=== PATIENT | female | born 1960 | race Caucasian/White ===

== ENCOUNTER 2016-10-20 14:48 | Emergency (ER) | payer OTHER ==
[~2016-10-20] VITALS: Ht 149.9 cm; Wt 84.0 kg
[~2016-10-20 14:48] MED LIST: GLYB5TAB; INSU100V19
[2016-10-20 15:08] VITALS: Ht 149.9 cm; Wt 84.0 kg
[2016-10-20] MEDS ORDERED: LIDOCAINE 1% (MDV) 20 ML INJ SC ONE (16:30)
[2016-10-20] MEDS ORDERED: HYDROCODONE/APAP (5/325) TAB PO ONE ×2 (16:30→17:00)
[2016-10-20] MEDS ORDERED: IBUP-1542 PO ×2 (18:56→19:00)
[2016-10-20] MEDS ORDERED: HYDR-906 PO (18:58)
[2016-10-20] MEDS ORDERED: CEPH-443 PO (18:58)
[2016-10-20] MEDS ORDERED: SULF1TAB31 PO (18:58)
--- NOTE | 2016-10-20 21:41 | ERD ---
ER Documentation Chief Complaint Date/Time DATE: 10/20/16 TIME: 21:36 Chief Complaint ABCESS ON SACRUM X 2 DAYS HPI Patient is a 55-year-old female who presents to the emergency department for concerns of an abscess in her buttocks region. Patient states the pain started 2 days ago. Patient reports redness and swelling to the affected area. Patient reports difficulty with sitting secondary to pain. She denies taking any pain medication. Patient denies any fevers, chills, nausea, vomiting, recent falls or trauma. She denies any history of pilonidal abscesses in the past. ROS All systems reviewed and are negative except as per history of present illness. Medications Home Meds Active Scripts Ibuprofen* (Motrin*) 600 Mg Tab, 600 MG PO Q6, #30 TAB Prov:MAMADOU PITTS PA-C 10/20/16 Hydrocodone/Acetaminophen ([place] 5-325 Tablet) 1 Each Tablet, 1 TAB PO Q6H Y for PAIN, #7 TAB Prov:MAMADOU PITTS PA-C 10/20/16 Cephalexin* (Keflex*) 500 Mg Capsule, 500 MG PO QID for 10 Days, CAP Prov:MAMADOU PITTS PA-C 10/20/16 Sulfamethoxazole/Trimethoprim* (Bactrim Ds* Tablet) 1 Each Tablet, 1 TAB PO BID , #20 TAB Prov:MAMADOU PITTS PA-C 10/20/16 Reported Medications Insulin Glargine,Hum.rec.anlog (Lantus) 100 U/Ml Vial 08/09/10 Glyburide* (Diabeta*) 5 Mg Tablet 08/09/10 Discontinued Scripts Ibuprofen* (Motrin*) 600 Mg Tab, 600 MG PO Q6, #30 TAB Prov:MAMADOU PITTSC 10/20/16 Allergies Allergies: Coded Allergies: No Known Allergies (Verified Allergy, Mild, 08/09/10) PMhx/Soc History of Surgery: Yes (ARIEL CLEMENTE) Anesthesia Reaction: No Hx Neurological Disorder: Yes Hx Respiratory Disorders: No Hx Cardiac Disorders: No Hx Psychiatric Problems: No Hx Miscellaneous Medical Probl: No Hx Alcohol Use: No Hx Substance Use: No Hx Tobacco Use: No Smoking Status: Never smoker FmHx Family History: No diabetes Physical Exam Vitals Vital Signs Date Time Temp Pulse Resp B/P Pulse Ox O2 Delivery O2 Flow Rate FiO2 10/20/16 15:08 98.2 90 18 141/80 98 Physical Exam GENERAL: Well-developed, well-nourished female. Appears in no acute distress. HEAD: Normocephalic, atraumatic. EYES: Pupils are equally reactive bilaterally. EOMs grossly intact. No conjunctival erythema. ENT: Moist mucous membranes. No uvula deviation. No kissing tonsils. NECK: Supple. No meningismus. Normal range of motion of the neck. LUNG: Clear to auscultation bilaterally. No rhonchi, wheezing, rales or coarse breath sounds. HEART: Regular rate and rhythm. No murmurs, rubs or gallops. ABDOMEN: No scars, ecchymosis or rashes noted. Soft, nontender, and nondistended. Positive bowel sounds in all four quadrants. No rebound tenderness , no guarding. (-) McBurney's point tenderness. No CVA tenderness. BACK: No midline tenderness. EXTREMITIES: Equal pulses bilaterally. No peripheral clubbing, cyanosis or edema. No unilateral leg swelling. NEUROLOGIC: Alert and oriented. Moving all four extremities without any difficulty. Normal speech. Steady gait. SKIN: Normal color. Warm and dry. No rashes or lesions. 5 cm circular abscess noted above the patient's gluteal cleft. Area appears erythematous swollen and extremely tender to touch. Pustular head noted. Slight fluctuance noted. No lymphatic streaking. Results 24 hrs Current Medications Medications (Trade) Dose Ordered Sig/Criss Route PRN Reason Start Time Stop Time Status Last Admin Dose Admin Acetaminophen/ Hydrocodone Bitart ([place] (5/325)) 1 tab ONCE ONCE PO 10/20/16 16:30 10/20/16 16:31 DC 10/20/16 16:25 Lidocaine (Xylocaine 1% (Mdv) 20 ml) 20 ml ONCE ONCE SC 10/20/16 16:30 10/20/16 16:31 DC Acetaminophen/ Hydrocodone Bitart ([place] (5/325)) 1 tab ONCE ONCE PO 10/20/16 17:00 10/20/16 17:00 DC Procedures/MDM ED COURSE: The patient was stable throughout ED course. I kept the patient and/or family informed of laboratory and diagnostic imaging results throughout the ED course. PROCEDURES: INCISION AND DRAINAGE: The patient was verbally consented prior to procedure. Patient was explained the risks, benefits and alternatives to this procedure. Location: Gluteal cleft Abscess size: 5 cm Anesthesia: local 1% lidocaine, 5 cc Preparation: The area was prepped in a sterile fashion using betadine x3 cleanses. A sterile field was prepared. Technique: A sterile 11 blade scalpel was used to make a 1 cm linear incision into the abscess. Procedure: A midline abscess incision was made using a sterile scalpel in a linear fashion. Purulent material was expressed with direct pressure. Blunt probing was used to break up loculations. Bleeding was minimal. Packing: half iodoform packing was placed into the wound. The patient tolerated the procedure well with no complications. The wound was dressed in sterile gauze. The patient was neurovascularly intact post- procedure. Post-procedural wound care was discussed with the patient. MEDICATIONS GIVEN: [place] Patient tolerated medication well with no adverse reactions. Patient reported improvement in pain. MEDICAL DECISION MAKING: This is a 55-year-old female who presents with concerns of an abscess to her buttocks 2 days. Vital signs were reviewed. Patient was afebrile. Patient was not hypoxic. An incision and drainage was conducted. Purulent discharge was expressed from the abscess site. Patient tolerated procedure well without any complications. Abscess was packed using half an inch iodoform dressing. At this time, the patient's presentation is most consistent with pilonidal abscess. Low suspicion for deep space infection, perirectal abscess, anal fissure, sciatica, sacral fracture, granuloma. PRESCRIPTIONS: Bactrim, Keflex, ibuprofen, [place] DISCHARGE: At this time, the patient is stable for discharge and outpatient management. Post-procedural wound care was discussed with the patient. Patient advised to complete full course of antibiotics. Warm compresses discussed. The patient has been advised to return to the ER in 2 days for a wound check and removal of packing. I have instructed the patient to promptly return to the ER for any new or worsening symptoms including increasing pain, fever, warmth, redness or swelling. The patient and/or family expressed understanding of and agreement with this plan. All questions were answered. Home care instructions were provided. Departure Diagnosis: Primary Impression: Pilonidal abscess Condition: Stable Patient Instructions: Pilonidal Cyst, Infected (Incision And Drainage) Additional Instructions: Wound recheck advised in 2 days. Return sooner for any new or worsening symptoms including fevers, chills, increasing redness, swelling and pain. Call your primary care doctor TOMORROW for an appointment during the next 1-2 days.See the doctor sooner or return here if your condition worsens before your appointment time. MAMADOU PITTS PA-C October 20, 2016 21:41
== END 2016-10-20 19:10 | disposition home or self-care (01) ==
LOC: FTE 14:48
DX: L05.02 Pilonidal sinus with abscess (principal); E11.9 Type 2 diabetes mellitus without complications; Z79.4 Long term (current) use of insulin; Z79.84 Long term (current) use of oral hypoglycemic drugs
CPT/HCPCS: 10080; Z7502; Z7610

== ENCOUNTER 2016-10-22 22:10 | Emergency (ER) | payer OTHER ==
[~2016-10-22] VITALS: Ht 152.4 cm; Wt 64.5 kg
[~2016-10-22 22:10] MED LIST changes: +CEPH-443 PO; +HYDR-906 PO; +IBUP-1542 PO; +SULF1TAB31 PO
[2016-10-22 22:50] VITALS: Ht 152.4 cm; Wt 64.5 kg
--- NOTE | 2016-10-22 23:38 | ERD ---
ER Documentation Chief Complaint Date/Time DATE: 10/22/16 TIME: 23:37 Chief Complaint LOWER BACK WOUND PATIENT HERE TO HAVE IT RECHECKED. HPI 55-year-old female is here for 2 day wound check for a pilonidal cyst. She is taking the pain medication and antibiotics as prescribed she states her symptoms are much improved. She denies any fever. Denies any bleeding or drainage still. She has no new complaints. ROS All systems reviewed and are negative except as per history of present illness. Medications Home Meds Active Scripts Ibuprofen* (Motrin*) 600 Mg Tab, 600 MG PO Q6, #30 TAB Prov:MAMADOU PITTS PA-C 10/20/16 Hydrocodone/Acetaminophen ([place] 5-325 Tablet) 1 Each Tablet, 1 TAB PO Q6H Y for PAIN, #7 TAB Prov:MAMADOU PITTS PA-C 10/20/16 Cephalexin* (Keflex*) 500 Mg Capsule, 500 MG PO QID for 10 Days, CAP Prov:MAMADOU PITTS PA-C 10/20/16 Sulfamethoxazole/Trimethoprim* (Bactrim Ds* Tablet) 1 Each Tablet, 1 TAB PO BID , #20 TAB Prov:MAMADOU PITTSC 10/20/16 Reported Medications Insulin Glargine,Hum.rec.anlog (Lantus) 100 U/Ml Vial 08/09/10 Glyburide* (Diabeta*) 5 Mg Tablet 08/09/10 Discontinued Scripts Ibuprofen* (Motrin*) 600 Mg Tab, 600 MG PO Q6, #30 TAB Prov:MAMADOU PITTS PA-C 10/20/16 Allergies Allergies: Coded Allergies: No Known Allergies (Verified Allergy, Mild, 08/09/10) PMhx/Soc History of Surgery: Yes (KIDNEY STONES) Anesthesia Reaction: No Hx Neurological Disorder: Yes Hx Respiratory Disorders: No Hx Cardiac Disorders: No Hx Psychiatric Problems: No Hx Miscellaneous Medical Probl: No Hx Alcohol Use: No Hx Substance Use: No Hx Tobacco Use: No FmHx Family History: diabetes Physical Exam Vitals Vital Signs Date Time Temp Pulse Resp B/P Pulse Ox O2 Delivery O2 Flow Rate FiO2 10/22/16 22:50 97.9 76 16 131/64 96 Physical Exam Const: [] Head: Atraumatic Eyes: Normal Conjunctiva ENT: Normal External Ears, Nose and Mouth. Neck: Full range of motion..~ No meningismus. Resp: Clear to auscultation bilaterally Cardio: Regular rate and rhythm, no murmurs Abd: Soft, non tender, non distended. Normal bowel sounds Skin: Healing pilonidal cyst with packing in place Procedures/MDM Pilonidal cyst is healing appropriately without evidence of complication. I removed the packing and recommended she continue to take antibiotics and pain medication as prescribed. Recommended this patient follow up with her primary care doctor within 48 hours or return to the emergency room for any worsening of symptoms. However this time I do believe there is suitable for outpatient management. I answered all their questions and they agreed with the plan and were discharged home. Departure Diagnosis: Primary Impression: Encounter for wound re-check Condition: Stable Patient Instructions: Wound Care Additional Instructions: Llame al doctor JEFFERY y estefanía shawn GIL PARA DENTRO DE 1-2 BISHOP.Dgale a la secretaria que nosotros le instruimos hacer esta gil.Avise o llame si clements condicin se empeora antes de la gil. Regresa aqui si peor o no mejor. CHAVEZ GIBBONS PA-C Oct 22, 2016 23:38
== END 2016-10-22 23:49 | disposition home or self-care (01) ==
LOC: FTE 22:10
DX: Z48.01 Encounter for change or removal of surgical wound dressing (principal); E11.9 Type 2 diabetes mellitus without complications; Z79.4 Long term (current) use of insulin; Z79.84 Long term (current) use of oral hypoglycemic drugs
CPT/HCPCS: 99281

== ENCOUNTER 2017-01-21 10:57 | Emergency (ER) | payer OTHER ==
[~2017-01-21] VITALS: Ht 157.5 cm; Wt 64.5 kg
[2017-01-21 11:00] VITALS: Ht 157.5 cm; Wt 64.5 kg
[2017-01-21] MEDS ORDERED: SULF1TAB31 PO (11:30)
--- NOTE | 2017-01-21 11:42 | ERD ---
ER Documentation Chief Complaint Date/Time DATE: 01/21/17 TIME: 11:40 Chief Complaint Complains of an abscess to the buttock HPI 56-year-old female presents with an abscess to her left buttock that started approximately 5 days ago. She describes localized pain, pain is worse with sitting, or ambulation, described as sharp and is nonradiating. She has no radiation into the rectum, she denies any fevers or chills. ROS All systems reviewed and are negative except as per history of present illness. Medications Home Meds Active Scripts Sulfamethoxazole/Trimethoprim* (Bactrim Ds* Tablet) 1 Each Tablet, 1 TAB PO BID , #14 TAB Prov:SARIKA CHAVARRIA PA-C 01/21/17 Ibuprofen* (Motrin*) 600 Mg Tab, 600 MG PO Q6, #30 TAB Prov:MAMADOU PITTS PA-C 10/20/16 Hydrocodone/Acetaminophen ([place] 5-325 Tablet) 1 Each Tablet, 1 TAB PO Q6H Y for PAIN, #7 TAB Prov:MAMADOU PITTS PA-C 10/20/16 Cephalexin* (Keflex*) 500 Mg Capsule, 500 MG PO QID for 10 Days, CAP Prov:MAMADOU PITTSC 10/20/16 Sulfamethoxazole/Trimethoprim* (Bactrim Ds* Tablet) 1 Each Tablet, 1 TAB PO BID , #20 TAB Prov:MAMADOU PITTS PA-C 10/20/16 Reported Medications Insulin Glargine,Hum.rec.anlog (Lantus) 100 U/Ml Vial 08/09/10 Glyburide* (Diabeta*) 5 Mg Tablet 08/09/10 Allergies Allergies: Coded Allergies: No Known Allergies (Verified Allergy, Mild, 08/09/10) PMhx/Soc History of Surgery: Yes (KIDNEY STONES) Anesthesia Reaction: No Hx Neurological Disorder: Yes Hx Respiratory Disorders: No Hx Cardiac Disorders: No Hx Psychiatric Problems: No Hx Miscellaneous Medical Probl: No Hx Alcohol Use: No Hx Substance Use: No Hx Tobacco Use: No Physical Exam Vitals Vital Signs Date Time Temp Pulse Resp B/P Pulse Ox O2 Delivery O2 Flow Rate FiO2 01/21/17 11:00 99.2 83 20 127/58 98 Physical Exam General: Well-developed, well-nourished. The patient appears in no acute distress. HEENT: Head is normocephalic, atraumatic. No scleral icterus. . Neck: Supple. Nontender. Lungs: Clear to auscultation. Normal air movement. Heart: Regular rate and rhythm. S1 and S2 are normal. No murmurs, gallops, or rubs. Abdomen: Soft, nontender, nondistended. Extremities: No clubbing or cyanosis. Normal pulses. Moving extremities x 4. No weakness. Neurologic: Alert and oriented 3. No focal deficits. Skin: Left buttock/upper thigh presents with 2 cm area of erythema, the central aspect has an induration, streaking, no involvement of the rectum Procedures/MDM 56-year-old female presents with an abscess to her left buttock/thigh she has had for approximately 5 days. The area is indurated, does not warrant any incision and drainage at this time. Advised to do warm sitz baths, she will be given Bactrim, and advised to recheck the area in 2 days. She has any worsening symptoms including fever she may return sooner. She does not have any signs of deep space infection, cellulitis, perianal, perirectal abscess or fistula. Departure Diagnosis: Primary Impression: Abscess Condition: Good Patient Instructions: Abscess, Antiobiotic Treatment Only SARIKA CHAVARRIA PA-C Jan 21, 2017 11:42
== END 2017-01-21 11:35 | disposition home or self-care (01) ==
LOC: FTE 10:57
DX: L02.31 Cutaneous abscess of buttock (principal); E11.9 Type 2 diabetes mellitus without complications; Z79.4 Long term (current) use of insulin; Z79.84 Long term (current) use of oral hypoglycemic drugs
CPT/HCPCS: 99283

== ENCOUNTER 2017-01-24 10:49 | Emergency (ER) | payer OTHER ==
[~2017-01-24] VITALS: Ht 149.9 cm; Wt 64.5 kg
[2017-01-24 10:53] VITALS: Ht 149.9 cm; Wt 64.5 kg
[2017-01-24] MEDS ORDERED: CLIN-73 PO (11:39)
[2017-01-24] MEDS ORDERED: BEN25 PO (11:39)
[2017-01-24] MEDS ORDERED: HC30CR25 TOP (11:39)
--- NOTE | 2017-01-24 16:00 | ERD ---
ER Documentation Chief Complaint Date/Time DATE: 01/24/17 TIME: 15:55 Chief Complaint hives on legs and hands x 3 days. unsure if allergic reaction HPI .This is a 56-year-old female presenting to the emergency department with rash to bilateral lower extremities. Patient states she was seen 3 days ago for a possible abscess on her upper left thigh. Patient was seen here and was told to soak area in warm water and that incision and drainage would not be necessary. Patient was started on Bactrim at that time. Patient states pruritic rash began soon after beginning Bactrim. Patient has taken Bactrim before without complication. Patient has generalized rash over entire body and complains of itching. No fevers or chills. No discharge. Patient states left upper abscess has improved and pain has improved. ROS All systems reviewed and are negative except as per history of present illness. Medications Home Meds Active Scripts Hydrocortisone* Topical (Hydrocortisone* Topical) 2.5%-28.3 Gm Cream..g., 1 APPLIC TOP BID, #1 TUB Prov:WILLIAM BUSTOS NP 01/24/17 Diphenhydramine Hcl* (Benadryl*) 25 Mg Cap, 25 MG PO Q6, #15 CAP Prov:WILLIAM BUSTOS NP 01/24/17 Clindamycin Hcl* (Clindamycin Hcl*) 300 Mg Capsule, 300 MG PO QID for 7 Days, CAP Prov:WILLIAM BUSTOS NP 01/24/17 Sulfamethoxazole/Trimethoprim* (Bactrim Ds* Tablet) 1 Each Tablet, 1 TAB PO BID , #14 TAB Prov:SARIKA CHAVARRIA PA-C 01/21/17 Ibuprofen* (Motrin*) 600 Mg Tab, 600 MG PO Q6, #30 TAB Prov:MAMADOU PITTS PA-C 10/20/16 Hydrocodone/Acetaminophen ([place] 5-325 Tablet) 1 Each Tablet, 1 TAB PO Q6H Y for PAIN, #7 TAB Prov:MAMADOU PITTS PA-C 10/20/16 Cephalexin* (Keflex*) 500 Mg Capsule, 500 MG PO QID for 10 Days, CAP Prov:MAMADOU PITTS PA-C 10/20/16 Sulfamethoxazole/Trimethoprim* (Bactrim Ds* Tablet) 1 Each Tablet, 1 TAB PO BID , #20 TAB Prov:MAMADOU PITTS PA-C 10/20/16 Reported Medications Insulin Glargine,Hum.rec.anlog (Lantus) 100 U/Ml Vial 08/09/10 Glyburide* (Diabeta*) 5 Mg Tablet 08/09/10 Allergies Allergies: Coded Allergies: No Known Allergies (Verified Allergy, Mild, 08/09/10) PMhx/Soc History of Surgery: Yes (KIDNEY STONES) Anesthesia Reaction: No Hx Neurological Disorder: Yes Hx Respiratory Disorders: No Hx Cardiac Disorders: No Hx Psychiatric Problems: No Hx Miscellaneous Medical Probl: No Hx Alcohol Use: No Hx Substance Use: No Hx Tobacco Use: No Smoking Status: Never smoker Physical Exam Vitals Vital Signs Date Time Temp Pulse Resp B/P Pulse Ox O2 Delivery O2 Flow Rate FiO2 01/24/17 10:53 98.8 79 16 144/66 97 Physical Exam Const: No acute distress, alert Head: Atraumatic Eyes: Normal Conjunctiva ENT: Normal External Ears, Nose and Mouth. Neck: Full range of motion..~ No meningismus. Resp: Clear to auscultation bilaterally Cardio: Regular rate and rhythm, no murmurs Abd: Soft, non tender, non distended. Normal bowel sounds Skin: Generalized erythematous rash with scattered wheals and macules. no discharge. indurated lesion to left upper posterior thigh. no discharge. no fluctuance. Back: No midline or flank tenderness Ext: No cyanosis, or edema Neur: Awake and alert Psych: Normal Mood and Affect Procedures/MDM MDM: This is a 56-year-old female presenting to emergency department with generalized pruritic rash after beginning Bactrim for possible abscess to left upper thigh. Patient states abscess to left upper thigh has decreased in size and pain has improved however now patient has generalized pruritic rash. Patient has taken Bactrim before however states rash began soon after starting this medication. Patient is concerned this is an allergic reaction. Patient did not take any other medication at home. No new foods, soaps or detergent. No fevers or chills. Vital signs are stable.No wheezing, shortness breath or difficulty breathing. Low suspicion for anaphylactic reaction. Patient differential diagnosis includes but not limited to allergic dermatitis, contact dermatitis, allergic reaction, fungal infection. Patient is appropriate for outpatient management will be given prescription for Benadryl, Clindamycin and hydrocortisone cream. Instructed patient to follow- up with primary care provider in the next 2-3 days for reassessment and additional management. Return to ED for any high fever, chest pain, difficulty breathing, shortness breath, wheezing, vomiting, diarrhea, abdominal pain or any new or worsening symptoms. Patient verbalizes understanding. All questions answered at discharge. Disclaimer: Inadvertent spelling and grammatical errors are likely due to EHR/ dictation software use and do not reflect on the overall quality of patient care. Also, please note that the electronic time recorded on this note does not necessarily reflect the actual time of the patient encounter. Departure Diagnosis: Primary Impression: Rash Condition: Stable Patient Instructions: Allergic Reaction, Drug Referrals: [facility] (PCP) Additional Instructions: Llame al doctor MAANA y estefanía shawn GIL PARA DENTRO DE 2-3 BISHOP.Dgale a la secretaria que nosotros le instruimos hacer esta gil.Avise o llame si clements condicin se empeora antes de la gil. Regresa aqui si peor o no mejor. Regresar a ED por fiebre migdalia, dolor en el pecho, dificultad para respirar, respiracin entrecortada, sibilancias, vmitos, diarrea, dolor abdominal o cualquier sntoma nuevo o que empeora. WILLIAM BUSTOS NP Jan 24, 2017 16:00
== END 2017-01-24 12:03 | disposition home or self-care (01) ==
LOC: FTE 10:49
DX: R21 Rash and other nonspecific skin eruption (principal); Z79.4 Long term (current) use of insulin
CPT/HCPCS: 99283